=== PATIENT | female | born 1940 | race Caucasian/White ===

== ENCOUNTER 2024-08-17 17:53 | Inpatient (IN) | payer MEDICARE, SELFPAY ==
[2024-08-17 18:01] VITALS: BP 133/78; PULSE 86; RESP 16; TEMP 36.6; O2SAT 94; BMI 39.4
--- NOTE | 2024-08-17 18:06 | XR_ITS ---
Examination: AP chest single view Technique one AP portable sitting chest single view Exam date and time: August 17, 2024 at 1906 hrs. Comparison June 12, 2017 Indications: Onset chest pain today Findings: Subsegmental atelectasis left base Mild prominence left ventricle Prominent central pulmonary arteries with mild vascular congestion Prominent osteopenia No lobar pneumonia or pulmonary edema Impression: Mild prominence left ventricle Subsegmental atelectasis left base Probable pulmonary artery hypertension No lobar pneumonia
--- NOTE | 2024-08-17 18:06 | EKG_ITS ---
[facility] Test Date: 2024-08-17 Pat Name: DAKOTA SMITH Department: Room: - Gender: Female [employer]: : 1940 Requested By: Michel Burgess Order Number: [id number] Reading MD: Michel Burgess Measurements Intervals [place] Rate: 82 P: 8 RI: 154 QRS: -15 QRSD: 142 T: -4 QT: 356 QTc: 416 Interpretive Statements SINUS RHYTHM RIGHT BUNDLE BRANCH BLOCK [120+ ms QRS DURATION, UPRIGHT V1, 40+ ms S IN I/aVL/V4/V5/V6] No previous ECG available for comparison /store/S0/[id number].pdf
--- NOTE | 2024-08-17 18:09 | PD.EDADULT ---
ED General RME/HPI General Chief complaint: GI Bleed Stated complaint: BLOODY STOOL Time Seen by Provider: 08/17/24 18:05 Arrival date/time: 08/17/24 17:53 CC: Black tarry stool HPI onset today but darker stools yesterday no prior history of similar events does not take ibuprofen or Tylenol on a regular basis. Does not take any blood thinners EMS reports stable vital signs and route patient is pale in appearance awake alert oriented cooperative with mild abdominal pain Patient denies heavy use of NSAIDs does not drink alcohol. Related Data Previous Rx's ?Medication ?Instructions ?Recorded losartan 100 mg tablet 100 mg PO QDAY #30 tabs 07/13/18 paroxetine HCl 30 mg tablet 30 mg PO QDAY #30 tabs 07/13/18 Allergies Allergy/AdvReac Type Severity Reaction Status Date / Time codeine Allergy Unresponsiv Verified 08/17/24 18:23 e Review of Systems Review of Systems Narrative Review of Systems: GEN: No fever, no chills, no weight loss EYES: No discharge, no visual changes, no pain HEENT: No ear pain, no congestion, no sore throat PULM: No shortness of breath, no cough, no congestion CV: No chest pain, no dyspnea on exertion, no palpitations GI: No nausea, no vomiting, no diarrhea, + pain, no constipation : No frequency, no urgency, no dysuria MUSC/SKEL: No joint pain, no back pain SKIN: No rash PSYCH: No hallucinations, no depression HEME/LYMPH: No easy bleeding or bruising tendencies NEURO: No weakness, no headache Past Medical History Past Medical History CARDIAC: Negative Congestive Heart Failure RESPIRATORY: Negative Chronic Obstructive Pulmonary Disease (COPD) GENITOURINARY: Negative Renal Disease ENDOCRINE: Negative Diabetes Mellitus Type 1 or Diabetes Mellitus Type 2 ED Exam Narrative Physical exam: [General: Appears not in any acute distress Head normocephalic HEENT: Within acceptable limits Neck is supple nontender Chest equal chest rise nontender to palpation Respiratory: Clear to auscultation no wheezes crackles or rubs CV: Rate rhythm is regular no murmurs rubs or clicks Abdomen is soft nontender no masses positive bowel sounds all 4 quadrants GI: Rectum: Old hemorrhoids at the 3 o'clock position moderate rectal tone stool is tarry black grossly guaiac positive. Back: No CVA tenderness no spinous process tenderness from cervical spine thoracic and lumbar spine Skin: Pale, cachectic, intact no petechiae rash induration ulceration or crepitus Extremities: Moving all extremities against resistance cap refill less than 2 seconds neurosensory intact Neuro: Awake alert oriented x3 Glascow coma 15 no focal deficits] Course Course Course Narrative: Patient's case discussed with Dr. Roger who agrees to consult on the patient Protonix drip started. Patient currently on a liquid diet will be n.p.o. after midnight. Patient case discussed with resident for Dr. Esparza agrees to accept the patient for admission. Patient is in agreement with this plan. Quality Measures none Orders Category Date Time Status COVID-19 Screening Questionnaire NOW Care 08/17/24 19:25 Active EKG (ED ONLY) *Do not use* NOW Care 08/17/24 18:06 Completed Endoscopy Consents .On arrival Care 08/17/24 19:48 Active Insert IV NOW Care 08/17/24 19:00 Active NPO after Midnight ONCE Care 08/17/24 18:06 Active NPO after Midnight ONCE Care 08/17/24 19:48 Active Consult to Gastroenterology Stat Cons 08/17/24 18:46 Ordered Diet Clear Liquid Diet 08/17/24 Breakfast Active Diet NPO after Midnight Diet 08/18/24 00:01 Active Diet NPO after Midnight Diet 08/18/24 00:01 Active EKG (ED Only) Stat Exams 08/17/24 18:06 Draft XR chest 1V portable Stat Exams 08/17/24 18:06 Completed B-Type Natriuretic Peptide Stat Lab 08/17/24 18:31 Completed CBC Stat Lab 08/17/24 18:31 Completed Comprehensive Metabolic Panel Stat Lab 08/17/24 18:31 Completed Drug Screen,Urine Stat Lab 08/17/24 20:52 Completed Free T4 (Free Thyroxine) Stat Lab 08/17/24 18:31 Completed LDH (Lactate Dehydrogenase) Stat Lab 08/17/24 18:31 Completed Magnesium Stat Lab 08/17/24 18:31 Completed Occult Blood, Stool (LAB) Stat Lab 08/17/24 19:00 Completed Partial Thromboplastin Time Stat Lab 08/17/24 18:31 Completed Prothrombin Time with INR Stat Lab 08/17/24 18:31 Completed TSH [Thyroid Stimulating Hormone] Stat Lab 08/17/24 18:31 Completed Type and Screen Stat Lab 08/17/24 16:50 Results Urinalysis Stat Lab 08/17/24 20:52 Received Pantoprazole Inj [Protonix Inj] Med 08/17/24 18:06 Discontinued 40 mg IVP X1 ONE Pantoprazole/Ns 80Mg IV Premix [Protonix/NS 80mg IV Med 08/17/24 18:06 Active Premix] 80 mg in 100 ml IV Q10H Vital Signs Vital signs: Vital Signs Temperature 97.9 F 08/17/24 18:01 Pulse Rate 86 08/17/24 18:01 Respiratory Rate 16 08/17/24 18:01 Blood Pressure 133/78 H 08/17/24 18:01 Pulse Oximetry (%) 94 L 08/17/24 18:01 Oxygen Delivery Method Room Air 08/17/24 18:01 [facility] Patient data External records reviewed:: [facility] previous records and EMS form Clinical information provided by:: patient and EMS Social determinants that could affect healthcare access:: none Patient has the following chronic illnesses:: Depression hypothyroidism How is presenting disease/condition affected by chronic disease/condition?: uneffected by Evaluation data The following diagnostics were reviewed and interpreted by me:: lab results, radiology exam(s) and EKG tracing(s) Lab and/or radiology exams considered but not ordered:: EKG performed at 1938 shows ventricular rate of 82 UT interval 154 QRS 142 acute QTc of 394 sinus rhythm right bundle branch block. CBC shows a leukocytosis of 11.8 with an anemia of 8.5 and 25.6 respectively platelets of 228. Coags within acceptable limits CMP shows sodium 142 potassium 4.5 chloride of 106 CO2 of 26.4 BUN of 74 creatinine 1.5 glucose of 104 TSH is 0.30 Free T4 and 0.87. Guaiac is positive Interpretation Summary: ADIS upper GI bleed Medications Medications considered but not ordered:: None Medication administrations:: Medication Administration History Acetaminophen (Acetaminophen 325 Mg Tablet) 650 mg PO Q6H PRN PRN Reason: Fever >100.3 or pain Stop: 09/16/24 20:15 Albuterol/Ipratropium (Albuterol/Ipratropium (Duoneb) Rt Silvia 3 Ml Nebu) 3 ml INH Q2HR PRN PRN Reason: SHORTNESS OF BREATH OR WHEEZE Stop: 09/16/24 20:15 Pantoprazole Sodium (Protonix/Ns 80mg Iv Premix) 80 mg in 100 mls @ 10 mls/hr IV Q10H BOZENA Stop: 08/20/24 16:05 Last Admin: 08/17/24 19:22 Dose: 10 mls/hr Documented By: AM Ondansetron HCl (Ondansetron Inj 2 Mg/Ml Inj 2 Ml) 4 mg IV Q6H PRN; Protocol PRN Reason: NAUSEA OR VOMITING Stop: 09/16/24 20:15 Paroxetine HCl (Paroxetine Hcl 10 Mg Tablet) 30 mg PO HS BOZENA Stop: 09/16/24 20:59 Thyroid (Thyroid 30 Mg Tablet) 120 mg PO ACBR BOZENA Stop: 09/17/24 05:59 Discontinued Medications Pantoprazole Sodium (Pantoprazole Inj 40 Mg Vial) 40 mg IVP X1 ONE Stop: 08/17/24 18:07 Last Admin: 08/17/24 18:32 Dose: 40 mg Documented By: DO None Consultations Consultation(s) initiated? (list below): Yes Consultation #1 (Physician, Specialty, Details): Kana Time: 19:00 Diagnosis Differential Diagnosis ED Complaint MDM: Upper GI bleed lower GI bleed anemia ADIS Most likely diagnosis given after review of the tests above:: Upper GI bleed ADIS Admission Indicated Admission indicated?: indicated Explain why admission is indicated or not indicated:: Quires further medical management Admission Request Was there a request for admission?: No Disposition Plan Disposition Plan: Admit Medical Decision Making Differential Diagnosis Differential Diagnosis: Upper GI bleed lower GI bleed anemia ADIS Lab Data 08/17/24 18:31 08/17/24 18:31 Labs: Lab Results 08/17/24 08/17/24 08/17/24 Range/Units 16:50 18:31 19:00 WBC 11.8 H (3.6-11.0) Thou/mm3 RBC 2.76 L (4.00-5.20) Miln/mm3 Hgb 8.5 L (12.0-16.0) g/dL Hct 25.6 L (36.0-46.0) % MCV 93 (80-100) fL MCH 30.8 (25.0-35.0) pg MCHC 33.2 (31.0-37.0) g/dl RDW Std Deviation 47.4 H (36.4-46.3) fL Plt Count 228 (140-440) Thou/mm3 Neut % (Auto) 82 H (37-80) % Lymph % (Auto) 10 (10-50) % [place] % (Auto) 7 (0-12) % Eos % (Auto) 0 (0-10) % Baso % (Auto) 0 (0-2.5) % Neut # (Auto) 9.7 H (1.8-7.7) Thou/mm3 Lymph # (Auto) 1.2 (1.0-4.8) Thou/mm3 [place] # (Auto) 0.8 (0.0-0.8) Thou/mm3 Eos # (Auto) 0.0 (0.0-0.5) Thou/mm3 Baso # (Auto) 0.0 (0.0-0.2) Thou/mm3 Immature Gran # (Auto) 0.11 H (0.00-0.00) Thou/mm3 Absolute Nucleated RBC 0.00 (0.00-0.00) Thou/mm3 Immature Gran % 1 H (0-0) % Nucleated RBC % 0 (0) /100 WBC PT 11.0 (9.0-12.2) Seconds INR 1.0 (0.9-1.3) APTT 20.0 L (22.0-36.0) Seconds Sodium 142 (136-145) mMol/L Potassium 4.5 (3.4-5.1) mMol/L Chloride 106 (98-107) mMol/L Carbon Dioxide 26.4 (20.0-31.0) mMol/L Anion Gap 10 (7-16) BUN 74 H (9-23) mg/dL Creatinine 1.5 H (0.6-1.3) mg/dL Estim Creat Clear Calc 24.2 L (>60) mL/min eGFR 34 L (60 - ) See Note BUN/Creatinine Ratio 49 H (12-20) Ratio Glucose 104 (74-106) mg/dL Calculated Osmolality 305 H (275-295) Calcium 10.6 (8.3-10.6) mg/dL Corrected Calcium 10.6 H (8.5-10.1) mg/dL Magnesium 1.9 (1.6-2.6) mg/dL Total Bilirubin 0.2 L (0.3-1.2) mg/dL AST 16 (0-34) U/L ALT 11 (10-49) U/L Alkaline Phosphatase 45 L (46-116) U/L Lactate Dehydrogenase 198 (120-246) U/L B-Natriuretic Peptide 50 (0-100) pg/mL Total Protein 6.7 (5.7-8.2) gm/dL Albumin 4.3 (3.4-4.8) gm/dL Globulin 2.4 (2.3-3.5) gm/dL Albumin/Globulin Ratio 1.8 (1.2-2.2) TSH 0.30 L (0.55-4.78) uIU/mL Free T4 0.87 L (0.89-1.76) ng/dL Stool Occult Blood Positive A (Negative) Blood Bank Wristband ID Yes Discharge Plan Plan Patient Disposition: Admit Acute Care w/in Hospital Patient condition on transfer: Stable Problem List Clinical Impression: Acute upper GI bleed, ADIS (acute kidney injury) PA/HORN PLAYER Supervising Physician PA/HORN PLAYER Supervising Physician: Michel Huynh ENP
[2024-08-17 18:17] VITALS: PULSE 84; O2SAT 23
[2024-08-17] MEDS: PANTOPRAZOLE INJ 40 MG VIAL IVP (18:32)
[2024-08-17 18:48] LABS: Basophils % (Auto) 0 % (0-2.5); Eosinophils % (Auto) 0 % (0-10); Hematocrit 25.6 % (36.0-46.0); Immature Granulocytes % (Auto) 1 % (0-0); Immature Granulocytes Auto 0.11 Thou/mm3 (0.00-0.00); Lymphocytes # (Auto) 1.2 Thou/mm3 (1.0-4.8); Lymphocytes % (Auto) 10 % (10-50); Mean Corpuscular HGB Conc 33.2 g/dl (31.0-37.0); Mean Corpuscular Hemoglobin 30.8 pg (25.0-35.0); Mean Corpuscular Volume 93 fL (80-100); Monocytes # (Auto) 0.8 Thou/mm3 (0.0-0.8); Monocytes % (Auto) 7 % (0-12); Neutrophils # (Auto) 9.7 Thou/mm3 (1.8-7.7); Neutrophils % (Auto) 82 % (37-80); Nucleated Red Blood Cell % 0 /100 WBC (0); Platelet Count 228 Thou/mm3 (140-440); RDW Standard Deviation 47.4 fL (36.4-46.3); Red Blood Count 2.76 Miln/mm3 (4.00-5.20); White Blood Count 11.8 Thou/mm3 (3.6-11.0)
[2024-08-17 18:49] LABS: Hemoglobin 8.5 g/dL (12.0-16.0)
[2024-08-17 19:05] LABS: Alanine Aminotransferase 11 U/L (10-49); Albumin, Serum 4.3 gm/dL (3.4-4.8); Albumin/Globulin Ratio 1.8 (1.2-2.2); Alkaline Phosphatase 45 U/L (46-116); Anion Gap 10 (7-16); Aspartate Amino Transferase 16 U/L (0-34); BUN/Creatinine Ratio 49 Ratio (12-20); Bilirubin,Total 0.2 mg/dL (0.3-1.2); Blood Urea Nitrogen 74 mg/dL (9-23); Calcium 10.6 mg/dL (8.3-10.6); Calcium (Corrected) 10.6 mg/dL (8.5-10.1); Carbon Dioxide 26.4 mMol/L (20.0-31.0); Chloride 106 mMol/L (98-107); Creatinine (Component) 1.5 mg/dL (0.6-1.3); Estimated Creatinine Clearance 24.2 mL/min (>60); Free T4 (Free Thyroxine) 0.87 ng/dL (0.89-1.76); Globulin 2.4 gm/dL (2.3-3.5); Glucose 104 mg/dL (74-106); LDH (Lactate Dehydrogenase) 198 U/L (120-246); Magnesium 1.9 mg/dL (1.6-2.6); Osmolality,Calculated 305 (275-295); Potassium 4.5 mMol/L (3.4-5.1); Sodium 142 mMol/L (136-145); Total Protein 6.7 gm/dL (5.7-8.2); eGFR 34 See Note
[2024-08-17 19:13] LABS: B-Type Natriuretic Peptide 50 pg/mL (0-100)
[2024-08-17 19:18] LABS: OBS Card Lot # 23001; OBS Developer Lot # 23003; OBS Performed By BOTED; OBS QC OK? Yes; Occult Blood, Stool Positive (Negative)
[2024-08-17] MEDS: PANTOPRAZOLE/NS 80MG IV PREMIX 80 MG/100 ML BAG 10 MG IV (19:22)
[2024-08-17 19:29] VITALS: BP 128/64; PULSE 81; RESP 17; O2SAT 99
--- NOTE | 2024-08-17 19:44 | PD.IMCONS ---
HPI Data of Consult Primary Care Provider: Eliel Hui MD Consult Narrative Reason for consult: Black tarry stools History of present illness: 84 years old female presented to the hospital with black tarry stools Stools were dark yesterday but turned black tarry stool this morning Presenting hemoglobin hematocrit was 8.5 and 25.6 with a platelet count of 228,000 And grossly elevated BUN/creatinine of 74 and 1.5 Hemoglobin hematocrit was 11.5 and 35.4 on 04/18/2024 cc:: cc: Review of Systems Review of Systems Systems Reviewed: All systems reviewed, normal except as documented Past Medical History Surgical History OTHER SURGICAL HX: As in the history of present illness Meds Home Medications and Allergies Allergies Allergy/AdvReac Type Severity Reaction Status Date / Time codeine Allergy Unresponsiv Verified 08/17/24 18:23 e Exam Vital Signs Temp Pulse Resp BP Pulse Ox O2 Del Method 97.9 F 81 17 128/64 99 Room Air 08/17/24 18:01 08/17/24 19:29 08/17/24 19:29 08/17/24 19:29 08/17/24 19:29 08/17/24 19:29 Constitutional Comments: Alert oriented Routine Respiratory Exam Comments: Normal to auscultation Routine Abdominal Exam Comments: Soft nontender Results Labs 08/17/24 18:31 08/17/24 18:31 Labs: Short CBC 08/17/24 Range/Units 18:31 WBC 11.8 H (3.6-11.0) Thou/mm3 Hgb 8.5 L (12.0-16.0) g/dL Hct 25.6 L (36.0-46.0) % Plt Count 228 (140-440) Thou/mm3 BMP 08/17/24 18:31 Sodium 142 Potassium 4.5 Chloride 106 Carbon Dioxide 26.4 BUN 74 H Creatinine 1.5 H Glucose 104 Calcium 10.6 Liver Function 08/17/24 Range/Units 18:31 Total Bilirubin 0.2 L (0.3-1.2) mg/dL AST 16 (0-34) U/L ALT 11 (10-49) U/L Alkaline Phosphatase 45 L (46-116) U/L Albumin 4.3 (3.4-4.8) gm/dL Assessment and Plan Additional Assessment & Plan Additional Plan: # Melena # Acute posthemorrhagic anemia Plan Case discussed with the emergency room physician nurses medical assistants phlebotomists Serial CBC PRBC transfusion as her hemoglobin hematocrit is going to drop once she is hydrated because of the elevated BUN and creatinine most likely prerenal as a teen IV Protonix Consent obtained for fiberoptic esophagogastroduodenoscopy with possible biopsy possible therapeutic intervention under intravenous moderate sedation
--- NOTE | 2024-08-17 19:57 | PC.NURSE ---
Dr. Roger at bedside speaking to patient.
[2024-08-17 20:37] VITALS: PULSE 85; RESP 19; RESP 97
--- NOTE | 2024-08-17 21:23 | PD.RESHP ---
Documentation for date of: 08/17/24 HPI History of Present Illness Chief complaint: Black stool History of present illness: HPI: Patient is an 84-year-old female with past medical history significant for hypothyroidism, Sjogren's disease, essential hypertension,?osteoporosis, spinal fusion of L1/L2 and anxiety. She presented today with a chief complaint of black stool. Patient stated that yesterday she had 1 episode of black stool. Described as formed, pellet shaped. Denies any blood, mucus, vomiting, fever and diarrhea. Today it progressively worsened. She stated that between this morning and this afternoon she had approximately 6 episodes of dark stool and the last episode was around 5 PM. It was associated with dizziness, diaphresis, palpitations and generalized weakness. She stated that just prior to calling the ambulance she felt weak and dizzy and had to sit down quickly. Nancy dizziness and palpitations have subsided, but weakness persists. Patient denies any recent NSAID use, antibiotic or steroid use, iron supplement and alcohol use. However she stated that approximately 2 days ago she took a painkiller for her left hand sprain but is unsure of the name. Upon review patient also denied any chest pain/pressure, PND, orthopnea, headache and syncopal episode. ED course: BP 128/64, pulse 81, RR 17, temp 97.9 F, SpO2 99% on room air. Labs significant for Hb 8.5, HCT 25.6, BUN 74, CR 1.5, corrected Ca 10.6, TSH 0.3, FT4 0.87. Chest x-ray significant for prominent pulmonary artery, possible pulmonary arterial hypertension and bibasilar atelectasis. EKG showed sinus rhythm, rate [address] No acute ST changes. Patient received pantoprazole 40 Mg IV x 1 and started on pantoprazole infusion. Patient will be admitted to the floor for acute blood loss anemia secondary to GI bleed for investigation. GI, Dr. Roger consulted and is closely following the case. Appreciate recommendations. Review of Systems Review of Systems Narrative Review of Systems: GENERAL: Denies fever/chills or diaphoresis. HEENT: Denies headaches or visual changes. Denies discharge. Neuro: Denies unusual weakness or difficulty speaking. CARDIO: As above PULM: Denies SOB, couging or wheezing. GI: As above URO: Denies buring/itching/pain/urinary changes. MSK/EXT/SKIN: Denies joint/skeletal/muschle pain, issues/changes in upper or lower extremities, itchiness, or superficial pain. PSYCH: Cooperative, pleasant mood & affect. The rest of the review of systems is otherwise negative. Past Medical History Past Medical History Comments PMH COMMENT: Past medical history: ?Hypothyroidism x 50 years ? Sjogren's x 24 years ? Osteoporosis ? Anxiety ? Essential hypertension Medication list: - Paroxetine 30 Mg p.o. at bedtime ? [place] Thyroid 120 Mg p.o. daily ? Losartan/HCTZ 50/12.5 1 tab p.o. daily Past surgical history: ?Total thyroidectomy >50 years ago ? >50 years ago ? Total abdominal hysterectomy >50 years ago ? Appendectomy >50 years ago ? Cholecystectomy [facility]s at [facility] ? Breast augmentation ? 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 Education Level: Attended college Marital Status: Tobacco use: Denies ETHO use: Denies Illicit drug use: Denies Social History Note: lives with retail marketing specialist, Bill. At baseline patient was ambulates with a cane and carries out all ADLs independently Family History: Hypothyroidism Exam Vital Signs Temp Pulse Resp BP Pulse Ox O2 Del Method 97.9 F 85 19 128/64 99 Room Air 08/17/24 18:01 08/17/24 20:37 08/17/24 20:37 08/17/24 19:29 08/17/24 19:29 08/17/24 19:29 Narrative Exam Constitutional Alert, oriented x 3 and comfortable. Elderly female, mucous membranes pale and warm moist. Left arm in splint, cane at bedside HEENT Vision grossly intact. Patent nares. Trachea midline Respiratory Chest normal on inspection and clear auscultation bilaterally Cardiovascular S1 and S2 audible, RRR. 3/6 ejection systolic murmur at right sternal border, no radiation to carotids. JVD not assessed Abdominal Soft and tender to palpation in epigastrium. BS + Genitourinary No bladder tenderness, no flank pain. Normal to palpation Musculoskeletal Extremities tone within normal limits. Trace LE edema. Neurological CN II - XII grossly intact. Extremity motor and sensation grossly intact. Skin Warm, dry and intact. No apparent lesions. Psychiatric Patient has good affect, is cooperative Results: Labs 08/18/24 04:52 08/17/24 18:31 Labs: Short CBC 08/17/24 Range/Units 18:31 WBC 11.8 H (3.6-11.0) Thou/mm3 Hgb 8.5 L (12.0-16.0) g/dL Hct 25.6 L (36.0-46.0) % Plt Count 228 (140-440) Thou/mm3 BMP 08/17/24 18:31 Sodium 142 Potassium 4.5 Chloride 106 Carbon Dioxide 26.4 BUN 74 H Creatinine 1.5 H Glucose 104 Calcium 10.6 Liver Function 08/17/24 Range/Units 18:31 Total Bilirubin 0.2 L (0.3-1.2) mg/dL AST 16 (0-34) U/L ALT 11 (10-49) U/L Alkaline Phosphatase 45 L (46-116) U/L Albumin 4.3 (3.4-4.8) gm/dL Quality Measures Quality Measures VTE prophylaxis (scd) Advance care planning discussed with:: patient Medications Home Medications and Allergies Home Medications ?Medication ?Instructions ?Recorded ?Confirmed ?Type losartan 50 mg-hydrochlorothiazide 12.5 tab PO DAILY 08/17/24 08/17/24 History 12.5 mg tablet thyroid (pork) 120 mg tablet 120 mg PO DAILY 08/17/24 08/17/24 History ([place]irie Thyroid) Allergies Allergy/AdvReac Type Severity Reaction Status Date / Time codeine Allergy Unresponsiv Verified 08/17/24 18:23 e Visit Medications Acetaminophen (Acetaminophen 325 Mg Tablet) 650 mg PO Q6H PRN PRN Reason: Fever >100.3 or pain Stop: 09/16/24 20:15 Albuterol/Ipratropium (Albuterol/Ipratropium (Duoneb) Rt Silvia 3 Ml Nebu) 3 ml INH Q2HR PRN PRN Reason: SHORTNESS OF BREATH OR WHEEZE Stop: 09/16/24 20:15 Pantoprazole Sodium (Protonix/Ns 80mg Iv Premix) 80 mg in 100 mls @ 10 mls/hr IV Q10H BOZENA Stop: 08/20/24 16:05 Last Admin: 08/17/24 19:22 Dose: 10 mls/hr Ondansetron HCl (Ondansetron Inj 2 Mg/Ml Inj 2 Ml) 4 mg IV Q6H PRN; Protocol PRN Reason: NAUSEA OR VOMITING Stop: 09/16/24 20:15 Paroxetine HCl (Paroxetine Hcl 10 Mg Tablet) 30 mg PO HS BOZENA Stop: 09/16/24 20:59 Discontinued Medications Pantoprazole Sodium (Pantoprazole Inj 40 Mg Vial) 40 mg IVP X1 ONE Stop: 08/17/24 18:07 Last Admin: 08/17/24 18:32 Dose: 40 mg Assessment & Plan Plan Patient is an 84-year-old female with past medical history significant for hypothyroidism, Sjogren's disease, essential hypertension,?osteoporosis, spinal fusion of L1/L2 and anxiety. She presented today with a chief complaint of black stool. Patient will be admitted to the floor for acute blood loss anemia secondary to GI bleed for investigation. 1. Symptomatic acute blood loss anemia secondary to GI bleed for investigation Patient presented with multiple episodes of dark stool for the past 1 day. On exam patient is pale, has mild epigastric tenderness on palpation and guaiac positive stool. DDx: Peptic ulcer, gastritis, medication induced, AV malformation, erosive esophagitis Hb on admission 8.5. From chart review baseline between 11.5?12.1 In the ED patient received Protonix 40 Mg IV x 1 Plan: ? Clear liquid diet ? N.p.o. after midnight ? Repeat CBC, CMP, mag, Phos in the a.m. ? Protonix 80 Mg IV infusion ? For EGD tomorrow as per GI recommendations. ? GI, Dr. Roger consulted and is closely following the case. Appreciate recommendations 2. Heart murmur for investigation On exam patient had 3/6 ejection systolic murmur auscultated at right sternal border without radiation to the carotids. Patient does not follow-up with a glass blower helper and has not seen one in many years. Plan: ? Transthoracic echocardiogram ordered to assess for wall motion abnormalities, valvular defects and ejection fraction. ? Based on echo results day team to decide on cardiology consult. 3. Hypercalcemia On admission Ca 10.6 DDx: Primary hyperparathyroidism, thiazide diuretics, calcium supplements, malignancy, CKD. Plan: ? Suggest PTH and 25-hydroxy vitamin D levels by day team if deemed necessary 4. CKD stage IIIb On admission CR 1.5, EGFR 34 From chart review baseline EGFR between 37?41. Plan: ? Renally dose medication ? Avoid nephrotoxic agents 5. Hypothyroidism Home medication [place] Thyroid 120 mg p.o. daily On admission TSH 0.3 and free T4 0.87 Plan: ? Resume home medication [place] Thyroid 120 Mg p.o. daily 6. Essential hypertension On admission patient's BP 128/64 Home medication losartan/HCTZ 50/12.5 Plan: ? Home medication held for now in light of symptomatic acute blood loss anemia. 7. Sjogren's Patient stated that she was diagnosed in the year 1999. She uses artificial tears as needed for dry eyes. Plan: ? Resume home medication artificial tears as needed 8. Generalized anxiety disorder Home medication paroxetine 30 Mg p.o. at bedtime Plan: ? Resume home medication paroxetine 30 Mg p.o. at bedtime Health maintenance: Disposition: Protonix infusion. Pending EGD tomorrow Diet: Clear liquid diet. N.p.o. after midnight Lines: pIVs GI Prophylaxis: Protonix infusion Thrombo Prophylaxis: SCDs Code status: FULL CODE Plan of care discussed with Attending Dr. Isaias Vora MD PGY 1 Attending Provider Attestation/Addendum Face to face evaluation was performed by me. I have personally seen and examined the patient. I discussed the assessment and plan with the entire medicine team. I reviewed available medical records, imaging studies, laboratory results. I agree with the above subjective data, objective findings, assessment and plan except as corrected by me or noted below Anemia, symptomatic, suspect acute on chronic blood loss due to below possible upper GI bleed Melena History of Sjogren's disease Generalized anxiety disorder History of hypothyroidism On Protonix drip, GI consulted, keep n.p.o. after midnight -For EGD evaluation tomorrow. No significant active blood loss, check hemoglobin, transfuse if hemoglobin below 7.
[2024-08-17 21:24] LABS: Collection Type, Urine Clean Catch; Squamous Epithelial Cell,Urine 0 /hpf (0-5)
[2024-08-17 21:45] VITALS: BP 133/63; PULSE 82; RESP 22; TEMP 36.3; O2SAT 93
[2024-08-17 21:51] LABS: Amphetamine/Methamp Scrn,U Negative (Negative); Barbiturate Screen,Urine Negative (Negative); Benzodiazepines Screen,Urine Negative (Negative); Benzoylecgonine Screen, Ur Negative (Negative); Fentanyl Screen,Urine Negative (Negative); Opiate Screen,Urine Negative (Negative); THC Screen,Urine Negative (Negative)
[2024-08-17 21:55] LABS: Bilirubin,Urine Negative (Negative); Blood,Urine Negative (Negative); Clarity,Urine Clear (Clear/Hazy); Color,Urine Lt-Yellow (Lt Yel-Yel); Glucose, Urine Negative (Negative); Ketones,Urine Negative (Negative); Leukocyte Esterase,Urine Negative (Negative); Nitrite,Urine Negative (Negative); PH,Urine 5.5 (5.0-7.0); Protein,Urine Negative (Neg - Trace); RBC,Urine 1 /hpf (0-3); Specific Gravity,Urine 1.016 (1.001-1.035); Urobilinogen,Urine Negative mg/dL (0.0-1.0); WBC,Urine 3 /hpf (0-5)
[2024-08-17] MEDS: PARoxetine HCL 10 MG TABLET 30 MG PO (22:14)
--- NOTE | 2024-08-17 22:57 | ECHO_ITS ---
Transthoracic Echo Report Ht (in): 55 Wt (lb): 170 Exam Location: Portable Status: Inpatient Washer Carcass: Madelaine Nelson Indications: Procedure Performed: BP: 137 / 53 HR: 98 Technical Quality: Fair MEASUREMENTS (Male / Female) Normal Values 2D ECHO LV Diastolic Diameter PLAX 5.0 cm 4.2 - 5.9 / 3.9 - 5.3 cm LV Systolic Diameter PLAX 3.1 cm IVS Diastolic Thickness 1.1 cm 0.6 - 1.0 / 0.6 - 0.9 cm LVPW Diastolic Thickness 1.2 cm 0.6 - 1.0 / 0.6 - 0.9 cm LV Relative Wall Thickness 0.5 LVOT Diameter 1.6 cm LA Volume Index 35.4 cm?/m? 16 - 28 cm?/m? Ascending Aorta Diameter 3.1 cm M-MODE Aortic Root Diameter MM 2.8 cm LA Systolic Diameter MM 4.1 cm LA Ao Ratio MM 1.5 AV Cusp Separation MM 1.8 cm DOPPLER AV Peak Velocity 225.0 cm/s AV Peak Gradient 20.3 mmHg AV Mean Gradient 10.3 mmHg AV Velocity Time Integral 54.5 cm LVOT Peak Velocity 124.0 cm/s LVOT Peak Gradient 6.2 mmHg LVOT Velocity Time Integral 27.2 cm LVOT Cardiac Index 3012.3 cm?/min?m? AV Area Cont Eq vti 1.0 cm? AV Area Cont Eq pk 1.1 cm? MV Peak Velocity 126.0 cm/s MV Peak Gradient 6.4 mmHg MV Mean Velocity 69.9 cm/s MV Mean Gradient 2.0 mmHg MV Area PHT 3.3 cm? MR Peak Velocity 454.0 cm/s MR Peak Gradient 82.4 mmHg Mitral E Point Velocity 99.4 cm/s Mitral A Point Velocity 96.5 cm/s Mitral E to A Ratio 1.0 LV E' Lateral Velocity 10.1 cm/s Mitral E to LV E' Lateral Ratio 9.8 LV E' Septal Velocity 5.7 cm/s Mitral E to LV E' Septal Ratio 17.6 TR Peak Velocity 175.0 cm/s TR Peak Gradient 12.3 mmHg FINDINGS Left Ventricle Normal left ventricular size, systolic function with no obvious regional wall motion abnormalities. Mild LVH. The ejection fraction is visually estimated at 60-65 %. Right Ventricle The right ventricle is normal in size and systolic function. The estimated right ventricular systoli c pressure, 17mmHg. RAP 5. Left Atrium The left atrium is mildly dilated. Right Atrium The right atrium is normal by two-dimensional imaging, color flow and Doppler imaging with no struct ural abnormalities, no thrombus formation present. Atrial Septum The interatrial septum appears normal with no evidence of a shunt. Aorta The aorta is normal by two-dimensional, color flow and Doppler interrogation. Mitral Valve The mitral valve is mildly MAC. There is moderate mitral valve regurgitation, with posterior eccent deb jet. Aortic Valve The aortic valve is trileaflet. Mild stenosis, mean gradient 11mmHg, vmax 2.4m/s. There is trace a ortic valve regurgitation. Tricuspid Valve The tricuspid valve is normal by two-dimensional, color flow and Doppler interrogation. There is tra ce tricuspid valve regurgitation. Pulmonic Valve . There is mild pulmonic valve regurgitation. Vessels The pulmonary artery appears normal. The inferior vena cava pulmonary and hepatic veins appear thu l. Pericardium The pericardium is normal by two-dimensional imaging. There is no significant pericardial effusion. CONCLUSIONS Normal LV size and function. Mild LVH. Estimated EF 60-65% Normal RV size and function Mild LA dilatation Mild MAC with Moderate MR with posterior eccentric jet. Mild calcific aortic stenosis, mean gradient 11mmHg, vmax 2.4m/s. MIld TR Sumaya Case (Electronically Signed) Final Date: 19 August 2024 17:54
[2024-08-18] VITALS (24 sets, daily range): BP systolic 95–152; BP diastolic 41–94; PULSE 64–98; RESP 13–98; TEMP 36.1–36.6; O2SAT 94–99
[2024-08-18] MEDS: PANTOPRAZOLE/NS 80MG IV PREMIX 80 MG/100 ML BAG 10 MG IV ×2 (05:10→18:29)
[2024-08-18 05:54] LABS: Basophils % (Auto) 1 % (0-2.5); Eosinophils % (Auto) 0 % (0-10); Hematocrit 21.9 % (36.0-46.0); Immature Granulocytes % (Auto) 1 % (0-0); Immature Granulocytes Auto 0.04 Thou/mm3 (0.00-0.00); Lymphocytes # (Auto) 2.2 Thou/mm3 (1.0-4.8); Lymphocytes % (Auto) 29 % (10-50); Mean Corpuscular HGB Conc 32.9 g/dl (31.0-37.0); Mean Corpuscular Hemoglobin 30.5 pg (25.0-35.0); Mean Corpuscular Volume 93 fL (80-100); Monocytes # (Auto) 0.8 Thou/mm3 (0.0-0.8); Monocytes % (Auto) 10 % (0-12); Neutrophils # (Auto) 4.7 Thou/mm3 (1.8-7.7); Neutrophils % (Auto) 61 % (37-80); Nucleated Red Blood Cell % 0 /100 WBC (0); Platelet Count 206 Thou/mm3 (140-440); RDW Standard Deviation 48.3 fL (36.4-46.3); Red Blood Count 2.36 Miln/mm3 (4.00-5.20); White Blood Count 7.8 Thou/mm3 (3.6-11.0)
[2024-08-18 05:56] LABS: Hemoglobin 7.2 g/dL (12.0-16.0)
--- NOTE | 2024-08-18 06:35 | PC.NURSE ---
md bolden made aware of pt's drop in HGB/HCT, new orders made will follow through with orders.
[2024-08-18 06:50] LABS: Alanine Aminotransferase 8 U/L (10-49); Albumin, Serum 3.7 gm/dL (3.4-4.8); Albumin/Globulin Ratio 1.7 (1.2-2.2); Alkaline Phosphatase 38 U/L (46-116); Anion Gap 10 (7-16); Aspartate Amino Transferase < 10 U/L (0-34); BUN/Creatinine Ratio 39 Ratio (12-20); Bilirubin,Total 0.3 mg/dL (0.3-1.2); Blood Urea Nitrogen 63 mg/dL (9-23); Calcium 9.9 mg/dL (8.3-10.6); Calcium (Corrected) 10.1 mg/dL (8.5-10.1); Carbon Dioxide 27.4 mMol/L (20.0-31.0); Cardiac Risk Estimate 3.7 RATIO (3.7-5.6); Chloride 105 mMol/L (98-107); Cholesterol 117 mg/dL (132-200); Creatinine (Component) 1.6 mg/dL (0.6-1.3); Estimated Creatinine Clearance 23.2 mL/min (>60); Globulin 2.2 gm/dL (2.3-3.5); Glucose 95 mg/dL (74-106); HDL Cholesterol 32 mg/dL (40-60); LDL Cholesterol,Calculated 68 mg/dL (0-130); Magnesium 1.8 mg/dL (1.6-2.6); Osmolality,Calculated 301 (275-295); Phosphorous 3.6 mg/dL (2.4-5.1); Potassium 3.9 mMol/L (3.4-5.1); Sodium 142 mMol/L (136-145); Total Protein 5.9 gm/dL (5.7-8.2); Triglycerides 84 mg/dL (30-150); eGFR 32 See Note
[2024-08-18 07:36] LABS: Glucose Estimated Average 103 mg/dL (80-131); Hemoglobin A1C 5.2 % Hgb (4.8-6.0)
--- NOTE | 2024-08-18 10:42 | PC.SS ---
Patient is alert/oriented. Patient states she lives with her friend, Bill. She was admitted for GI bleed. Patient stsates she's normally very independent with ADL's. She uses a wheelchair as needed. She states family /friends provide transportation assistance. She has a left hand that she recently had surgery on in June. She is pending an appt. for her back at [facility] for osteoporosis. Patient is penidng an EGD today. Patient d/c plan: return home with friend. Her alt medical decision maker is her daughter, Toshia. Her p.c.p. is Dr. Hui. Last appt. was in April.
[2024-08-18] MEDS: Magnesium Sulfate 4 GM Ivpb 4 GM/50 ML BAG IV (11:01)
--- NOTE | 2024-08-18 11:20 | PC.NURSE ---
per Dr. Cisneros, OK to hold PRBC infusion until pt has EGD today 08/18/24, which will happen around 1230
[2024-08-18] MEDS: SODIUM CHLORIDE 0.9% 1000 ML 1,000 ML 999 ML IV (11:28)
--- NOTE | 2024-08-18 14:09 | SUR.PHASEI ---
1409: Pt. wakes to name then drifts back to sleep, vitals stable, breathing unlabored, no complaint of pain or nausea, no dressing in place, no active bleed noted, report received from Kary CR.
--- NOTE | 2024-08-18 14:39 | SUR.PHASEI ---
1439: Pt. AAOx4, vitals stable, breathing unlabored, no complaint of pain or nausea, no dressing in place, no active bleed noted, report given to Gus CR. Pt. transferred back to room 364, family made aware of transfer to room.
--- NOTE | 2024-08-18 15:38 | ESPR_ITS ---
Documentation for date of: 08/18/24 Subjective Subjective Interval history: Patient seen today at the bedside found awake, alert, oriented x 3. No overnight events reported. Vital signs stable at this time. Labs significant for drop in hemoglobin was 7, night team ordered 1 PRBC transfusion. Rest of labs significant for worsening kidney function likely related to GI bleed and hypotension. Patient also stated she has history of ulcers in the stomach. EGD was done showed gastritis and esophagitis, will plan for colonoscopy tomorrow. Exam Vital Signs Temp Pulse Resp BP Pulse Ox O2 Del Method O2 Flow Rate 97.1 F 75 16 120/64 95 Room Air 2 08/18/24 14:39 08/18/24 14:39 08/18/24 14:39 08/18/24 14:39 08/18/24 14:39 08/18/24 07:53 08/18/24 14:39 Narrative Exam Physical Exam GENERAL: NAD, AAOx3 HEENT: Moist mucosa. Eyes open, symmetrical, & clear CARDIO: Heart RRR, no obvious murmurs PULM: No noted coughing/dyspnea CTA B/L, no R/W/R GI: Abdomen soft, nondistended, no pain on palpation. BSx4 SKIN/MSK/EXT: No wounds/rashes/edema/amputations, no pain on palpation. Pedal pulses present B/L NEURO: AAOx3, no focal neuro deficits, able to move all 4 extremities Objective Labs 08/19/24 04:45 08/19/24 04:45 Labs: Laboratory Results - last 24 hr 08/17/24 08/17/24 08/17/24 16:50 18:31 19:00 WBC 11.8 H RBC 2.76 L Hgb 8.5 L Hct 25.6 L MCV 93 MCH 30.8 MCHC 33.2 RDW Std Deviation 47.4 H Plt Count 228 Neut % (Auto) 82 H Lymph % (Auto) 10 [place] % (Auto) 7 Eos % (Auto) 0 Baso % (Auto) 0 Neut # (Auto) 9.7 H Lymph # (Auto) 1.2 [place] # (Auto) 0.8 Eos # (Auto) 0.0 Baso # (Auto) 0.0 Immature Gran # (Auto) 0.11 H Absolute Nucleated RBC 0.00 Immature Gran % 1 H Nucleated RBC % 0 PT 11.0 INR 1.0 APTT 20.0 L Sodium 142 Potassium 4.5 Chloride 106 Carbon Dioxide 26.4 Anion Gap 10 BUN 74 H Creatinine 1.5 H Estim Creat Clear Calc 24.2 L eGFR 34 L BUN/Creatinine Ratio [address]ucose [address] Glu mg/dL Hemoglobin A1c Calculated Osmolality 305 H Calcium 10.6 Corrected Calcium 10.6 H Phosphorus Magnesium 1.9 Total Bilirubin 0.2 L AST 16 ALT 11 Alkaline Phosphatase 45 L Lactate Dehydrogenase 198 B-Natriuretic Peptide 50 Total Protein 6.7 Albumin 4.3 Globulin 2.4 Albumin/Globulin Ratio 1.8 Triglycerides Cholesterol LDL Cholesterol, Calc HDL Cholesterol Cholesterol/HDL Ratio TSH 0.30 L Free T4 0.87 L Ur Collection Type Urine Color Urine Clarity Urine pH Ur Specific [place] Urine Protein Urine Glucose (UA) Urine Ketones Urine Blood Urine Nitrite Urine Bilirubin Urine Urobilinogen (Auto) Ur Leukocyte Esterase Urine RBC Urine WBC Ur Squamous Epith Cells Urine Bacteria Stool Occult Blood Positive A Urine Opiates Screen Urine Fentanyl Screen Ur Barbiturates Screen U Amphetamin/Meth Scrn U Benzodiazepines Scrn U Cocaine Metab Screen U Marijuana (THC) Screen Blood Type O Positive Antibody Screen NEGATIVE Crossmatch See Detail Blood Bank Wristband ID Yes 08/17/24 08/18/24 20:52 04:52 WBC 7.8 RBC 2.36 L Hgb 7.2 L Hct 21.9 L* MCV 93 MCH 30.5 MCHC 32.9 RDW Std Deviation 48.3 H Plt Count 206 Neut % (Auto) 61 Lymph % (Auto) 29 [place] % (Auto) 10 Eos % (Auto) 0 Baso % (Auto) 1 Neut # (Auto) 4.7 Lymph # (Auto) 2.2 [place] # (Auto) 0.8 Eos # (Auto) 0.0 Baso # (Auto) 0.0 Immature Gran # (Auto) 0.04 H Absolute Nucleated RBC 0.00 Immature Gran % 1 H Nucleated RBC % 0 PT INR APTT Sodium 142 Potassium 3.9 D Chloride 105 Carbon Dioxide 27.4 Anion Gap 10 BUN 63 H Creatinine 1.6 H Estim Creat Clear Calc 23.2 L eGFR 32 L BUN/Creatinine Ratio 39 H Glucose [address] Glu mg/dL 103 Hemoglobin A1c 5.2 Calculated Osmolality 301 H Calcium 9.9 Corrected Calcium 10.1 Phosphorus 3.6 Magnesium 1.8 Total Bilirubin 0.3 AST < 10 ALT 8 L Alkaline Phosphatase 38 L Lactate Dehydrogenase B-Natriuretic Peptide Total Protein 5.9 Albumin 3.7 D Globulin 2.2 L Albumin/Globulin Ratio 1.7 Triglycerides 84 Cholesterol 117 L LDL Cholesterol, Calc 68 HDL Cholesterol 32 L Cholesterol/HDL Ratio 3.7 TSH Free T4 Ur Collection Type Clean Catch Urine Color Lt-Yellow Urine Clarity Clear Urine pH 5.5 Ur Specific [place] 1.016 Urine Protein Negative Urine Glucose (UA) Negative Urine Ketones Negative Urine Blood Negative Urine Nitrite Negative Urine Bilirubin Negative Urine Urobilinogen (Auto) Negative Ur Leukocyte Esterase Negative Urine RBC 1 Urine WBC 3 Ur Squamous Epith Cells 0 Urine Bacteria None Stool Occult Blood Urine Opiates Screen Negative Urine Fentanyl Screen Negative Ur Barbiturates Screen Negative U Amphetamin/Meth Scrn Negative U Benzodiazepines Scrn Negative U Cocaine Metab Screen Negative U Marijuana (THC) Screen Negative Blood Type Antibody Screen Crossmatch Blood Bank Wristband ID Quality Measures Quality Measures VTE prophylaxis (scd) Advance care planning discussed with:: patient Assessment & Plan Assessment Current Active Medications: Generic Name Dose Route Start Last Admin Trade Name Freq PRN Reason Stop Dose Admin Acetaminophen 650 mg 08/17/24 20:16 Acetaminophen 325 Mg Tablet PO 09/16/24 20:15 Q6H PRN Fever >100.3 or pain Albuterol/Ipratropium 3 ml 08/17/24 20:16 Albuterol/Ipratropium (Duoneb) Rt Silvia 3 Ml Nebu INH 09/16/24 20:15 Q2HR PRN SHORTNESS OF BREATH OR WHEEZE Artificial Tears 0 drop 08/18/24 09:00 08/18/24 09:30 Artificial Tears 225 Drop/15 Ml Btl BOTH EYES 09/17/24 08:59 Not Given DAILY BOZENA Pantoprazole Sodium 80 mg in 100 mls @ 10 mls/hr 08/17/24 18:06 08/18/24 05:10 Protonix/Ns 80mg Iv Premix IV 08/20/24 16:05 10 mls/hr Q10H BOZENA Administration Ondansetron HCl 4 mg 08/17/24 20:16 Ondansetron Inj 2 Mg/Ml Inj 2 Ml IV 09/16/24 20:15 Q6H PRN NAUSEA OR VOMITING Protocol Paroxetine HCl 30 mg 08/17/24 21:00 08/17/24 22:14 Paroxetine Hcl 10 Mg Tablet PO 09/16/24 20:59 30 mg HS BOZENA Administration Thyroid 120 mg 08/18/24 06:00 08/18/24 05:58 Thyroid 30 Mg Tablet PO 09/17/24 05:59 Not Given ACBR BOZENA Plan 84-year-old female with past medical history significant for hypothyroidism, Sjogren's disease, essential hypertension,?osteoporosis, spinal fusion of L1/L2 and anxiety. She presented today with a chief complaint of black stool. Patient will be admitted to the floor for acute blood loss anemia secondary to GI bleed for investigation. #Symptomatic acute blood loss anemia secondary #?GI bleed Patient presented with multiple episodes of dark stool for the past 1 day. On exam patient is pale, has mild epigastric tenderness on palpation and guaiac positive stool. DDx: Peptic ulcer, gastritis, medication induced, AV malformation, erosive esophagitis Hb on admission 8.5. From chart review baseline between 11.5?12.1 In the ED patient received Protonix 40 Mg IV x 1 Patient stated having history of >1 ulcer in the stomach in the past current Hemoglobin 7.2 EGD done showed gastritis and esophagitis no clear source of bleeding found -GoLytely prep -Pending colonoscopy -Protonix 80 Mg IV infusion -GI, Dr. Roger consulted and is closely following the case. Appreciate recommendations #Heart murmur for investigation On exam patient had 3/6 ejection systolic murmur auscultated at right sternal border without radiation to the carotids. Patient does not follow-up with a forensic materials engineer and has not seen one in many years. - Transthoracic echocardiogram ordered to assess for wall motion abnormalities, valvular defects and ejection fraction. #Hypercalcemia-resolved On admission Ca 10.6 -Monitor at this time #CKD stage IIIb On admission CR 1.5, EGFR 34 From chart review baseline EGFR between 37?41. ? Renally dose medication ? Avoid nephrotoxic agents #Hypothyroidism Home medication [place] Thyroid 120 mg p.o. daily On admission TSH 0.3 and free T4 0.87 ? Resume home medication [place] Thyroid 120 Mg p.o. daily #Essential hypertension On admission patient's BP 128/64 Home medication losartan/HCTZ 50/12.5 -Losartan hydrochlorothiazide on hold at this time as patient blood pressure is soft # Sjogren's syndrome Patient stated that she was diagnosed in the year 1999. She uses artificial tears as needed for dry eyes. ? Resume home medication artificial tears as needed #Generalized anxiety disorder Home medication paroxetine 30 Mg p.o. at bedtime ? Resume home medication paroxetine 30 Mg p.o. at bedtime Case discussed with senior Dr. Cisneros PGY-[address] Julisa Gupta MD PGY-1 Disposition: Med telemetry Fluids: None Feeding: Clear liquid Thrombo prophylaxis: SCDs Gastric Ulcer prophylaxis: Pantoprazole CODE STATUS: Full code Senior resident attestation: Patient evaluated and examined at the bedside, plan of care discussed with rest of the team including my attending physician, except as noted. Patient is a 89-year-old female who came in for acute blood loss anemia, positive history of NSAIDs recently, gastroenterology was consulted, Dr. Roger followed the patient. EGD showed esophagitis in the lower third of esophagus and inflammation as well as congestion in the gastric antrum. Plan for GoLytely prep possible colonoscopy tomorrow. 1.acute blood loss anemia secondary GI bleed 2.esophagitis ?1 PRBC ordered, EGD showed esophagitis, pending colonoscopy. On GoLytely prep. 3.ADIS versus CKD ? Likely prerenal in the setting of GI bleed, unsure of patient's baseline creatinine. 4.history of hypothyroidism on [place] Thyroid, will resume home medication. Amelia PGY2 Attending Provider Attestation/Addendum 84-year-old female with multiple comorbidities including hypertension, CKD stage IIIb, Sj?gren's syndrome and and hypothyroidism who presented with melena found to have anemia likely related to upper GI bleed and subsequently started on Protonix pending GI consult. I reviewed above note and agree with findings and plans. I have also personally examined the patient with medicine team and went over assessment and plan with medical team including customer experience intern and resident physician.
[2024-08-18] MEDS: NA SU/NAHCO3/KC/PEG (Golytely) 4,000 ML BTL 4000 ML PO (15:51)
[2024-08-18] MEDS: PARoxetine HCL 10 MG TABLET 30 MG PO (20:08)
[2024-08-18 20:19] LABS: Hematocrit 28.1 % (36.0-46.0); Hemoglobin 9.2 g/dL (12.0-16.0)
--- NOTE | 2024-08-18 22:49 | PC.NURSE ---
Notify MD of pt's Hgb 9.2 and Hct 28.1. said to hold the 2nd bag of PRBC.
[2024-08-19] VITALS (18 sets, daily range): BP systolic 122–188; BP diastolic 53–82; PULSE 65–98; RESP 14–95; TEMP 36.1–36.3; O2SAT 90–99; BMI 40.7
[2024-08-19] MEDS: THYROID 30 MG TABLET 120 MG PO (05:18)
[2024-08-19] MEDS: PANTOPRAZOLE/NS 80MG IV PREMIX 80 MG/100 ML BAG 10 MG IV ×2 (06:08→17:28)
[2024-08-19 06:41] LABS: Basophils # (Auto) 0.1 Thou/mm3 (0.0-0.2); Basophils % (Auto) 1 % (0-2.5); Eosinophils % (Auto) 0 % (0-10); Hematocrit 26.3 % (36.0-46.0); Immature Granulocytes % (Auto) 1 % (0-0); Immature Granulocytes Auto 0.04 Thou/mm3 (0.00-0.00); Lymphocytes # (Auto) 1.8 Thou/mm3 (1.0-4.8); Lymphocytes % (Auto) 26 % (10-50); Mean Corpuscular HGB Conc 33.1 g/dl (31.0-37.0); Mean Corpuscular Hemoglobin 30.6 pg (25.0-35.0); Mean Corpuscular Volume 93 fL (80-100); Monocytes # (Auto) 0.7 Thou/mm3 (0.0-0.8); Monocytes % (Auto) 10 % (0-12); Neutrophils # (Auto) 4.4 Thou/mm3 (1.8-7.7); Neutrophils % (Auto) 63 % (37-80); Nucleated Red Blood Cell % 0 /100 WBC (0); Platelet Count 181 Thou/mm3 (140-440); RDW Standard Deviation 53.2 fL (36.4-46.3); Red Blood Count 2.84 Miln/mm3 (4.00-5.20); White Blood Count 7.1 Thou/mm3 (3.6-11.0)
[2024-08-19 06:52] LABS: Hemoglobin 8.7 g/dL (12.0-16.0)
[2024-08-19 07:17] LABS: Alanine Aminotransferase 9 U/L (10-49); Albumin, Serum 3.8 gm/dL (3.4-4.8); Albumin/Globulin Ratio 1.7 (1.2-2.2); Alkaline Phosphatase 37 U/L (46-116); Anion Gap 10 (7-16); Aspartate Amino Transferase 17 U/L (0-34); BUN/Creatinine Ratio 29 Ratio (12-20); Bilirubin,Total 0.7 mg/dL (0.3-1.2); Blood Urea Nitrogen 44 mg/dL (9-23); Calcium 9.5 mg/dL (8.3-10.6); Calcium (Corrected) 9.7 mg/dL (8.5-10.1); Carbon Dioxide 26.3 mMol/L (20.0-31.0); Chloride 107 mMol/L (98-107); Creatinine (Component) 1.5 mg/dL (0.6-1.3); Estimated Creatinine Clearance 24.7 mL/min (>60); Globulin 2.3 gm/dL (2.3-3.5); Glucose 85 mg/dL (74-106); Magnesium 2.1 mg/dL (1.6-2.6); Osmolality,Calculated 295 (275-295); Potassium 4.5 mMol/L (3.4-5.1); Sodium 143 mMol/L (136-145); Total Protein 6.1 gm/dL (5.7-8.2); eGFR 34 See Note
--- NOTE | 2024-08-19 10:10 | PC.SS ---
SS follow up: met with patient to review Medicare rights, patient plans to return home upon discharge. Pending possible colonoscopy today.
--- NOTE | 2024-08-19 12:01 | PD.RESPRO ---
Documentation for date of: 08/19/24 Subjective Subjective Interval history: Patient seen today at the bedside fine awake, alert, oriented x 3. No overnight events reported. Vital signs stable at this time. Labs significant for improving kidney function. Patient at this time undergoing GoLytely prep for colonoscopy today or tomorrow. Pending echo read for heart murmur. Exam Vital Signs Temp Pulse Resp BP Pulse Ox O2 Del Method O2 Flow Rate 97.2 F 73 18 134/71 H 95 Room Air 1 08/19/24 08:00 08/19/24 08:10 08/19/24 08:10 08/19/24 08:00 08/19/24 08:10 08/19/24 08:00 08/18/24 23:08 Narrative Exam Physical Exam GENERAL: NAD, AAOx3 HEENT: Moist mucosa. Eyes open, symmetrical, & clear CARDIO: Heart RRR, no obvious murmurs PULM: No noted coughing/dyspnea CTA B/L, no R/W/R GI: Abdomen soft, nondistended, no pain on palpation. BSx4 SKIN/MSK/EXT: No wounds/rashes/edema/amputations, no pain on palpation. Pedal pulses present B/L NEURO: AAOx3, no focal neuro deficits, able to move all 4 extremities Objective Labs 08/19/24 04:45 08/19/24 04:45 Labs: Laboratory Results - last 24 hr 08/17/24 08/18/24 08/19/24 16:50 20:07 04:45 WBC 7.1 RBC 2.84 L Hgb 9.2 L D 8.7 L Hct 28.1 L 26.3 L MCV 93 MCH 30.6 MCHC 33.1 RDW Std Deviation 53.2 H Plt Count 181 Neut % (Auto) 63 Lymph % (Auto) 26 [place] % (Auto) 10 Eos % (Auto) 0 Baso % (Auto) 1 Neut # (Auto) 4.4 Lymph # (Auto) 1.8 [place] # (Auto) 0.7 Eos # (Auto) 0.0 Baso # (Auto) 0.1 Immature Gran # (Auto) 0.04 H Absolute Nucleated RBC 0.00 Immature Gran % 1 H Nucleated RBC % 0 Sodium 143 Potassium 4.5 D Chloride 107 Carbon Dioxide 26.3 Anion Gap 10 BUN 44 H Creatinine 1.5 H Estim Creat Clear Calc 24.7 L eGFR 34 L BUN/Creatinine Ratio 29 H Glucose 85 Calculated Osmolality 295 Calcium 9.5 Corrected Calcium 9.7 Phosphorus 4.0 Magnesium 2.1 Total Bilirubin 0.7 AST 17 ALT 9 L Alkaline Phosphatase 37 L Total Protein 6.1 Albumin 3.8 Globulin 2.3 Albumin/Globulin Ratio 1.7 Blood Type O Positive Antibody Screen NEGATIVE Crossmatch See Detail Blood Bank Wristband ID Yes Quality Measures Quality Measures VTE prophylaxis (scd) Advance care planning discussed with:: patient Assessment & Plan Assessment Current Active Medications: Generic Name Dose Route Start Last Admin Trade Name Freq PRN Reason Stop Dose Admin Acetaminophen 650 mg 08/17/24 20:16 Acetaminophen 325 Mg Tablet PO 09/16/24 20:15 Q6H PRN Fever >100.3 or pain Albuterol/Ipratropium 3 ml 08/17/24 20:16 Albuterol/Ipratropium (Duoneb) Rt Silvia 3 Ml Nebu INH 09/16/24 20:15 Q2HR PRN SHORTNESS OF BREATH OR WHEEZE Artificial Tears 0 drop 08/18/24 09:00 08/19/24 09:57 Artificial Tears 225 Drop/15 Ml Btl BOTH EYES 09/17/24 08:59 Not Given DAILY BOZENA Pantoprazole Sodium 80 mg in 100 mls @ 10 mls/hr 08/17/24 18:06 08/19/24 06:08 Protonix/Ns 80mg Iv Premix IV 08/20/24 16:05 10 mls/hr Q10H BOZENA Administration Ondansetron HCl 4 mg 08/17/24 20:16 Ondansetron Inj 2 Mg/Ml Inj 2 Ml IV 09/16/24 20:15 Q6H PRN NAUSEA OR VOMITING Protocol Paroxetine HCl 30 mg 08/17/24 21:00 08/18/24 20:08 Paroxetine Hcl 10 Mg Tablet PO 09/16/24 20:59 30 mg HS BOZENA Administration Thyroid 120 mg 08/18/24 06:00 08/19/24 05:18 Thyroid 30 Mg Tablet PO 09/17/24 05:59 120 mg ACBR BOZENA Administration Plan 84-year-old female with past medical history significant for hypothyroidism, Sjogren's disease, essential hypertension,?osteoporosis, spinal fusion of L1/L2 and anxiety. She presented today with a chief complaint of black stool. Patient will be admitted to the floor for acute blood loss anemia secondary to GI bleed for investigation. #Symptomatic acute blood loss anemia secondary #?GI bleed Patient presented with multiple episodes of dark stool for the past 1 day. On exam patient is pale, has mild epigastric tenderness on palpation and guaiac positive stool. DDx: Peptic ulcer, gastritis, medication induced, AV malformation, erosive esophagitis Hb on admission 8.5. From chart review baseline between 11.5?12.1 In the ED patient received Protonix 40 Mg IV x 1 Patient stated having history of >1 ulcer in the stomach in the past current Hemoglobin 7.2 EGD done showed gastritis and esophagitis no clear source of bleeding found -GoLytely prep -Pending colonoscopy -Protonix 80 Mg IV infusion -GI, Dr. Roger consulted and is closely following the case. Appreciate recommendations #Heart murmur for investigation On exam patient had 3/6 ejection systolic murmur auscultated at right sternal border without radiation to the carotids. Patient does not follow-up with a dog day care attendant and has not seen one in many years. - Transthoracic echocardiogram ordered to assess for wall motion abnormalities, valvular defects and ejection fraction. #Hypercalcemia-resolved On admission Ca 10.6 -Monitor at this time #CKD stage IIIb On admission CR 1.5, EGFR 34 From chart review baseline EGFR between 37?41. ? Renally dose medication ? Avoid nephrotoxic agents #Hypothyroidism Home medication [place] Thyroid 120 mg p.o. daily On admission TSH 0.3 and free T4 0.87 ? Resume home medication [place] Thyroid 120 Mg p.o. daily #Essential hypertension On admission patient's BP 128/64 Home medication losartan/HCTZ 50/12.5 -Losartan/hydrochlorothiazide on hold at this time as patient blood pressure is soft # Sjogren's syndrome Patient stated that she was diagnosed in the year 1999. She uses artificial tears as needed for dry eyes. ? Resume home medication artificial tears as needed #Generalized anxiety disorder Home medication paroxetine 30 Mg p.o. at bedtime ? Resume home medication paroxetine 30 Mg p.o. at bedtime Case discussed with senior Dr. Cisneros PGY-[address] Julisa Gupta MD PGY-1 Disposition: Med telemetry Fluids: None Feeding: GoLytely Thrombo prophylaxis: SCDs Gastric Ulcer prophylaxis: Pantoprazole CODE STATUS: Full code Attending Provider Attestation/Addendum 84-year-old female with multiple comorbidities including hypertension, CKD stage IIIb, Sj?gren's syndrome and and hypothyroidism who presented with melena found to have anemia likely related to upper GI bleed and subsequently started on Protonix pending GI consult. I reviewed above note and agree with findings and plans. I have also personally examined the patient with medicine team and went over assessment and plan with medical team including engineer internship and resident physician.
--- NOTE | 2024-08-19 14:50 | PC.SS ---
Rounding note: planned for colonoscopy today. Also pending GI recommendations.
[2024-08-19] MEDS: PARoxetine HCL 10 MG TABLET 30 MG PO (20:31)
[2024-08-20] VITALS: BP 123/52; PULSE 62; PULSE 71; RESP 18; TEMP 36.2; O2SAT 94
[2024-08-20 04:00] VITALS: BP 146/68; PULSE 68; PULSE 75; RESP 17; TEMP 36.4; O2SAT 95
[2024-08-20] MEDS: PANTOPRAZOLE/NS 80MG IV PREMIX 80 MG/100 ML BAG 10 MG IV (04:49)
[2024-08-20] MEDS: THYROID 30 MG TABLET 120 MG PO (05:07)
[2024-08-20 06:53] LABS: Basophils % (Auto) 0 % (0-2.5); Eosinophils % (Auto) 0 % (0-10); Hematocrit 27.6 % (36.0-46.0); Hemoglobin 9.2 g/dL (12.0-16.0); Immature Granulocytes % (Auto) 1 % (0-0); Immature Granulocytes Auto 0.04 Thou/mm3 (0.00-0.00); Lymphocytes # (Auto) 1.7 Thou/mm3 (1.0-4.8); Lymphocytes % (Auto) 24 % (10-50); Mean Corpuscular HGB Conc 33.3 g/dl (31.0-37.0); Mean Corpuscular Hemoglobin 30.6 pg (25.0-35.0); Mean Corpuscular Volume 92 fL (80-100); Monocytes # (Auto) 0.7 Thou/mm3 (0.0-0.8); Monocytes % (Auto) 10 % (0-12); Neutrophils # (Auto) 4.6 Thou/mm3 (1.8-7.7); Neutrophils % (Auto) 65 % (37-80); Nucleated Red Blood Cell % 0 /100 WBC (0); Platelet Count 178 Thou/mm3 (140-440); Red Blood Count 3.01 Miln/mm3 (4.00-5.20); White Blood Count 7.1 Thou/mm3 (3.6-11.0)
[2024-08-20 07:21] LABS: Alanine Aminotransferase 7 U/L (10-49); Albumin, Serum 3.8 gm/dL (3.4-4.8); Albumin/Globulin Ratio 1.5 (1.2-2.2); Alkaline Phosphatase 47 U/L (46-116); Anion Gap 11 (7-16); Aspartate Amino Transferase 21 U/L (0-34); BUN/Creatinine Ratio 24 Ratio (12-20); Bilirubin,Total 0.3 mg/dL (0.3-1.2); Blood Urea Nitrogen 33 mg/dL (9-23); Calcium 9.5 mg/dL (8.3-10.6); Calcium (Corrected) 9.7 mg/dL (8.5-10.1); Carbon Dioxide 25.8 mMol/L (20.0-31.0); Chloride 108 mMol/L (98-107); Creatinine (Component) 1.4 mg/dL (0.6-1.3); Estimated Creatinine Clearance 26.5 mL/min (>60); Globulin 2.6 gm/dL (2.3-3.5); Glucose 96 mg/dL (74-106); Magnesium 1.7 mg/dL (1.6-2.6); Osmolality,Calculated 295 (275-295); Phosphorous 3.6 mg/dL (2.4-5.1); Potassium 4.3 mMol/L (3.4-5.1); Sodium 145 mMol/L (136-145); Total Protein 6.4 gm/dL (5.7-8.2); eGFR 37 See Note
[2024-08-20 08:00] VITALS: BP 135/76; PULSE 76; RESP 14; TEMP 36.3; O2SAT 96
[2024-08-20 08:26] VITALS: PULSE 70; RESP 20; RESP 96; O2SAT 96
--- NOTE | 2024-08-20 10:42 | CHAP ---
Patient was visited by a Spiritual Care Volunteer on 08/20/2024 between 0900 and 1036 and received comfort, encouragement and/or prayer.
--- NOTE | 2024-08-20 11:05 | ESPR_ITS ---
Documentation for date of: 08/20/24 Subjective Subjective Interval history: Patient evaluated Hemoglobin hematocrit 9.2 and 27.6 Agree with the discharge plan is to be followed by the primary care physician Discussed colonoscopy findings Exam Vital Signs Temp Pulse Resp BP Pulse Ox O2 Del Method O2 Flow Rate 97.4 F 70 20 135/76 H 96 Room Air 3 08/20/24 08:00 08/20/24 08:26 08/20/24 08:26 08/20/24 08:00 08/20/24 08:26 08/20/24 08:00 08/19/24 19:25 Constitutional Comments: Alert oriented Routine Respiratory Exam Comments: Normal to auscultation Routine Abdominal Exam Comments: Soft nontender Objective Labs 08/20/24 04:45 08/20/24 04:45 Labs: Laboratory Results - last 24 hr 08/20/24 04:45 WBC 7.1 RBC 3.01 L Hgb 9.2 L Hct 27.6 L MCV 92 MCH 30.6 MCHC 33.3 RDW Std Deviation 50.0 H Plt Count 178 Neut % (Auto) 65 Lymph % (Auto) 24 [place] % (Auto) 10 Eos % (Auto) 0 Baso % (Auto) 0 Neut # (Auto) 4.6 Lymph # (Auto) 1.7 [place] # (Auto) 0.7 Eos # (Auto) 0.0 Baso # (Auto) 0.0 Immature Gran # (Auto) 0.04 H Absolute Nucleated RBC 0.00 Immature Gran % 1 H Nucleated RBC % 0 Sodium 145 Potassium 4.3 Chloride 108 H Carbon Dioxide 25.8 Anion Gap 11 BUN 33 H Creatinine 1.4 H Estim Creat Clear Calc 26.5 L eGFR 37 L BUN/Creatinine Ratio 24 H Glucose 96 Calculated Osmolality 295 Calcium 9.5 Corrected Calcium 9.7 Phosphorus 3.6 Magnesium 1.7 Total Bilirubin 0.3 AST 21 ALT 7 L Alkaline Phosphatase 47 D Total Protein 6.4 Albumin 3.8 Globulin 2.6 Albumin/Globulin Ratio 1.5 Impressions Impression: # Diverticulosis sigmoid colon and descending colon # Posthemorrhagic anemia # Gastritis # Esophagitis Agree with discharge planning Follow-up with the primary care physician Assessment & Plan A&P Narrative # Melena # Acute posthemorrhagic anemia Plan Case discussed with the emergency room physician administration assistant Serial CBC PRBC transfusion as her hemoglobin hematocrit is going to drop once she is hydrated because of the elevated BUN and creatinine most likely prerenal as a teen IV Protonix Consent obtained for fiberoptic esophagogastroduodenoscopy with possible biopsy possible therapeutic intervention under intravenous moderate sedation Time Spent With Patient Time: Total time spent is greater than 50% in coordination of care (as documented) at patient's floor/unit and/or counseling patient:
--- NOTE | 2024-08-20 11:13 | ESDS_ITS ---
Planned Discharge Date 08/20/24 DS: Providers Provider Date of admission: 08/17/24 20:16 Primary care physician: Eliel Hui MD Admitting Provider: Omi Esparza MD Attending Provider on Admission: Erick Alexandre MD Consults: 08/17/24 18:46 Consult to Gastroenterology Stat Comment: Consulting Provider: Keturah Roger Attending Provider on DC: Erick Alexandre MD Discharging Provider: Marvin Gupta MD Anticipated date of discharge: 08/20/24 DS: Diagnosis Problem List Completed Was Problem List Reviewed/Reconciled?: Yes Hospital Course Hospital Course Hospital course: 84-year-old female with past medical history significant for hypothyroidism, Sjogren's disease, essential hypertension,?osteoporosis, spinal fusion of L1/L2 and anxiety presented to the ED due to tarry black stools. Patient was admitted for GI workup for GI bleed. During hospital stay patient was evaluated with endoscopy procedure was found to have esophagitis, gastritis. As a source of bleed was not found patient underwent preparation for [facility] for colonoscopy procedure. After colonoscopy patient was found to have hemorrhoids, diverticulosis. For patient's hypothyroidism patient home medication was resumed. For patient's anxiety disorder patient's paroxetine 30 mg at bedtime was resumed. Per patient Sjogren's syndrome conservative tears were ordered. Patient had approximately her hospital stay however resolved. Patient was found with evidence of a heart murmur on physical exam Baptiste was evaluated with ackerman sthoracic echocardiogram which was found to have normal ejection fraction. Patient at this time is medically stable for discharge. Please follow-up with your primary care physician within 3 to 5 days of discharge. Please follow-up with your ecology professor Dr. Roger within 2 to 4 weeks of discharge from hospital, you may need a referral from your primary doctor before scheduling appointment. Recommend adequate hydration daily and plant-based diet. In case of worsening symptoms please return to the emergency room. Problem list: #Symptomatic acute blood loss anemia secondary to # Upper versus lower GI bleed #Heart murmur for investigation #Hypercalcemia-resolved #CKD stage IIIb #Hypothyroidism #Essential hypertension # Sjogren's syndrome #Generalized anxiety disorder Case discussed with my attending Dr. Baldomero Gupta MD PGY-1 Status at Discharge Functional status at discharge: independent ambulation Overall status at discharge: patient is back to baseline Time Spent with Patient Time attestation: Total time spent providing and/or coordinating discharge services: Time spent: Greater than 30 minutes Exam Vital Signs Temp Pulse Resp BP Pulse Ox O2 Del Method O2 Flow Rate 97.4 F 70 20 135/76 H 96 Room Air 3 08/20/24 08:00 08/20/24 08:26 08/20/24 08:26 08/20/24 08:00 08/20/24 08:26 08/20/24 08:00 08/19/24 19:25 Narrative Exam Physical Exam GENERAL: NAD, AAOx3 HEENT: Moist mucosa. Eyes open, symmetrical, & clear CARDIO: Heart RRR, no obvious murmurs PULM: No noted coughing/dyspnea CTA B/L, no R/W/R GI: Abdomen soft, nondistended, no pain on palpation. BSx4 SKIN/MSK/EXT: No wounds/rashes/edema/amputations, no pain on palpation. Pedal pulses present B/L NEURO: AAOx3, no focal neuro deficits, able to move all 4 extremities Discharge Plan Plan Patient Disposition: HOME (Self Care) Patient condition on transfer: Stable Care Plan Goals: Please follow-up with your primary care physician within 3 to 5 days of discharge Please follow-up with your ecology professor Dr. Roger within 2 to 4 weeks of discharge from hospital, you may need a referral from your primary doctor before scheduling appointment. Recommend adequate hydration daily and plant-based diet. In case of worsening symptoms please return to the emergency room. Prescriptions/Referrals Prescriptions/Med Rec: New pantoprazole 40 mg tablet,delayed release (DR/EC) 40 mg PO QDAY Qty: 14 0RF Continued paroxetine HCl 30 mg tablet 30 mg PO QDAY Qty: 30 0RF losartan-hydrochlorothiazide 50-12.5 mg tablet 12.5 tab PO DAILY Patient Comments: take 1 tablet by mouth once daily thyroid (pork) [[place] Thyroid] 120 mg tablet 120 mg PO DAILY Patient Comments: TAKE 1 TABLET BY MOUTH EVERY DAY Referrals: Eliel Hui MD [Primary Care Provider] - Patient/Caregiver Discharge Instructions Education Materials: Bleeding Gastrointestinal, Colonoscopy, Upper GI Endoscopy, Kidney Failure Self Care, Anatomy of the Digestive System, Acute Kidney Failure Dc, ED Upper GI Bleeding (Stable) Print Language: Lao Stand Alone Forms: [employer] Patient Portal Info Letter Discharge Order Discharge Orders: Discharge (Routine); Ordered 08/20/24 Ordered By: Marvin Gupta Quality Discharge Quality Measures VTE prophylaxis Attestestation MD Attestation I reviewed labs, imaging, EKG, home medications and prior available records. Face to face evaluation was performed by me. I have personally examined the daija ent and discussed assessment and plan with the IM team. I reviewed the resident note and agree with the plan with exceptions as below. Upper GI bleed CKD stage IIIb Chronic anemia, likely from blood loss EGD showed gastritis/esophagitis. Colonoscopy showed diverticulosis and hemorrhoids. GI recommended increased fiber intake, increased oral water intake, and follow-up with GI as outpatient in 2 to 4 weeks. Monitor kidney function as outpatient and H&H Time spent is 40 minutes. More than 50% of the time was spent on patient education and coordination of care.
[2024-08-20 12:00] VITALS: BP 151/75; PULSE 65; RESP 16; TEMP 36.4; O2SAT 93
== END 2024-08-20 14:00 | disposition home or self-care (01) | DRG 377 ==
LOC: SERX 18:58 → SERHOLD 20:32 → S3NX 21:52
PROVIDERS: Registered Nurse General Practice; Specialist; Admitting Provider Internal Medicine; Emergency Provider Emergency Medicine; PCP Internal Medicine; Visit Provider Student in an Organized Health Care Education/Training Program
PROC: 0DJ08ZZ Inspection of Upper Intestinal Tract, Via Natural or Artificial Opening Endoscopic (ICD-10-PCS; CPT 43239; principal; 2024-08-18 13:15)
PROC: 0DJD8ZZ Inspection of Lower Intestinal Tract, Via Natural or Artificial Opening Endoscopic (ICD-10-PCS; CPT 45378; principal; 2024-08-19 17:00)
DX: K57.31 Diverticulosis of large intestine without perforation or abscess with bleeding (principal); K20.91 Esophagitis, unspecified with bleeding; D62 Acute posthemorrhagic anemia; K29.71 Gastritis, unspecified, with bleeding; E03.9 Hypothyroidism, unspecified; I12.9 Hypertensive chronic kidney disease with stage 1 through stage 4 chronic kidney disease, or unspecified chronic kidney disease; N18.32 Chronic kidney disease, stage 3b; M35.00 Sjogren syndrome, unspecified; M81.0 Age-related osteoporosis without current pathological fracture; Z98.1 Arthrodesis status; E83.52 Hypercalcemia; F41.1 Generalized anxiety disorder; K64.9 Unspecified hemorrhoids
CPT/HCPCS: 36415; 71045; 80053; 80061; 80307; 81001; 82270; 83036; 83615; 83735; 83880; 84100; 84439; 84443; 85014; 85018; 85025; 85610; 85730; 86850; 86900; 86901; 86923; 93005; 93225; 93306; 96374; 99285; J1200; J2250; J2470; J3010; J3475; J3490; J7030; P9016; A9270

== ENCOUNTER → 2024-09-04 | Outpatient (CLI) | payer MEDICARE, OTHER, SELFPAY ==
[2024-09-04 13:15] LABS: Basophils % (Auto) 1 % (0-2.5); Eosinophils % (Auto) 0 % (0-10); Hematocrit 30.9 % (36.0-46.0); Hemoglobin 9.8 g/dL (12.0-16.0); Immature Granulocytes % (Auto) 0 % (0-0); Immature Granulocytes Auto 0.02 Thou/mm3 (0.00-0.00); Lymphocytes # (Auto) 1.2 Thou/mm3 (1.0-4.8); Lymphocytes % (Auto) 19 % (10-50); Mean Corpuscular HGB Conc 31.7 g/dl (31.0-37.0); Mean Corpuscular Hemoglobin 29.9 pg (25.0-35.0); Mean Corpuscular Volume 94 fL (80-100); Monocytes # (Auto) 0.8 Thou/mm3 (0.0-0.8); Monocytes % (Auto) 12 % (0-12); Neutrophils # (Auto) 4.4 Thou/mm3 (1.8-7.7); Neutrophils % (Auto) 68 % (37-80); Nucleated Red Blood Cell % 0 /100 WBC (0); Platelet Count 218 Thou/mm3 (140-440); RDW Standard Deviation 50.1 fL (36.4-46.3); Red Blood Count 3.28 Miln/mm3 (4.00-5.20); White Blood Count 6.5 Thou/mm3 (3.6-11.0)
[2024-09-04 13:21] LABS: Glucose Estimated Average 108 mg/dL (80-131); Hemoglobin A1C 5.4 % Hgb (4.8-6.0)
[2024-09-04 13:29] LABS: Albumin, Serum 4.3 gm/dL (3.4-4.8); Anion Gap 5 (7-16); BUN/Creatinine Ratio 19 Ratio (12-20); Blood Urea Nitrogen 26 mg/dL (9-23); Calcium 9.9 mg/dL (8.3-10.6); Calcium (Corrected) 9.9 mg/dL (8.5-10.1); Carbon Dioxide 26.6 mMol/L (20.0-31.0); Chloride 108 mMol/L (98-107); Creatinine (Component) 1.4 mg/dL (0.6-1.3); Folate 14.25 ng/mL (>5.38); Free T4 (Free Thyroxine) 1.11 ng/dL (0.89-1.76); Glucose 111 mg/dL (74-106); Osmolality,Calculated 285 (275-295); Phosphorous 3.9 mg/dL (2.4-5.1); Potassium 4.8 mMol/L (3.4-5.1); Sodium 140 mMol/L (136-145); Thyroid Stimulating Hormone 0.09 uIU/mL (0.55-4.78); Vitamin B12 803 pg/mL (211-911); Vitamin D 25 Hydroxy Total 28.5 ng/mL (7.3-40.2); eGFR 37 See Note
[2024-09-04 13:31] LABS: Ferritin 141 ng/mL (7.3-270.7); Iron 66 mcg/dL (50-170)
== END | disposition home or self-care (01) ==
LOC: COPL 12:17
PROVIDERS: PCP Internal Medicine; Referring Provider Internal Medicine; Visit Provider Internal Medicine
DX: D64.9 Anemia, unspecified (principal); E11.9 Type 2 diabetes mellitus without complications; E55.9 Vitamin D deficiency, unspecified; E03.9 Hypothyroidism, unspecified
CPT/HCPCS: 36415; 80069; 82306; 82607; 82728; 82746; 83036; 83540; 84439; 84443; 85025